=== PATIENT | male | born 1930 | race Caucasian/White ===

== ENCOUNTER 2016-09-04 18:01 | Inpatient (IN) | payer OTHER ==
[~2016-09-04] VITALS: Ht 185.4 cm; Wt 129.2 kg
[2016-09-04 19:17] LABS: EOSINOPHIL (%) 0 % (0-5); HEMATOCRIT 40.7 % (38.0-50.0); IMMATURE GRANULOCYTE (%) 0.2 % (0.0-0.7); INSTRUMENT ABS NEUTROPHIL CT 2.9 K/uL; LYMPHOCYTE COUNT 0.3 K/uL (1.0-2.8); MCH 30.7 PG (29.0-34.0); MCHC 31.9 G/DL (30.0-36.0); MEAN PLAT.VOLUME 11.6 uM^3 (9.0-12.4); MONOCYTE COUNT 0.9 K/uL (0-0.8); NEUTROPHIL (%) 70.5 % (45-76); NEUTROPHIL COUNT 2.9 K/uL (1.8-6.4); PLATELET COUNT 99 K/uL (156-360); RBC DIS.WIDTH-CV 15.9 % (11.8-14.6); RBC DIS.WIDTH-SD 55.9 % (39-53); RED BLOOD COUNT 4.24 M/uL (4.00-5.50); WHITE BLOOD COUNT 4.1 K/uL (4.1-10.2)
[2016-09-04 19:27] LABS: CHLORIDE 104 mEq/L (99-109); POTASSIUM 4.3 mEq/L (3.7-5.4); SODIUM 141 mEq/L (136-147)
[2016-09-04 19:29] LABS: GLUCOSE 121 mg/dL (70-99)
[2016-09-04 19:30] LABS: ANION GAP 10 MEQ/L (2-14)
[2016-09-04 19:31] LABS: TOTAL BILIRUBIN 0.9 mg/dL (0.0-1.0)
[2016-09-04 19:33] LABS: ALKALINE PHOSPHATASE 62 IU/L (3-129); GFR ESTIMATE (CALCULATED) > 59 mL/min/
[2016-09-04 19:34] LABS: UREA NITROGEN (BUN) 22 mg/dL (9-23)
[2016-09-04 19:34] LABS: POINT-OF-CARE METER ID UU13113702
[2016-09-04 19:42] LABS: TROP-I INTERPRETATION NEGATIVE; TROPONIN-I 0.05 ng/mL (0.0-0.30)
[2016-09-04 19:49] LABS: ADD MIUA? YES; BILIRUBIN NEGATIVE; BLOOD NEGATIVE; COLOR AMBER ((YELLOW)); GLUCOSE (STRIP) NEGATIVE; KETONES 20; LEUKOCYTES NEGATIVE; NITRITE NEGATIVE; PROTEIN (STRIP) 100; SPECIFIC GRAVITY 1.024 (1.000-1.030)
[2016-09-04 20:06] LABS: BACTERIA RARE /HPF; EPITHELIAL CELLS NONE SEEN /HPF; MUCUS TRACE /LPF; RED BLOOD CELLS 0-5 /HPF (0-5); WHITE BLOOD CELLS 0-5 /HPF (0-5)
[2016-09-04] MEDS ORDERED: GLUCOPHAGE1000 MG PO (21:08)
[2016-09-04] MEDS ORDERED: LASIX40 MG PO (21:08)
[2016-09-04] MEDS ORDERED: K-DUR20 MEQ PO (21:08)
[2016-09-04] MEDS ORDERED: LIPITOR40 MG PO (21:08)
[2016-09-04] MEDS ORDERED: TENORMIN100 MG PO (21:08)
[2016-09-04] MEDS ORDERED: COZAAR100 MG PO (21:10)
[2016-09-04] MEDS ORDERED: RISPERDAL0.25 MG PO (21:10)
[2016-09-04] MEDS ORDERED: NORVASC5 MG PO (21:10)
[2016-09-04] MEDS ORDERED: TRAZODONE HCL50 MG PO (21:10)
[2016-09-04] MEDS ORDERED: VENLAFAXINE HCL75 M3 PO (21:11)
[2016-09-04] MEDS ORDERED: FISH OIL 1,001000 M1 PO (21:11)
[2016-09-04] MEDS ORDERED: GLUCOSAMINE 1,1 EAC1 PO (21:11)
[2016-09-04] MEDS ORDERED: LITE COAT ASPI325 M1 PO (21:11)
[2016-09-04] MEDS ORDERED: COUMADIN5 MG PO ×2 (21:12→21:13)
[2016-09-04] MEDS ORDERED: CENTRUM SILVER1 EAC3 PO (21:12)
[2016-09-04] MEDS ORDERED: VITAMIN D31000 UNIT PO (21:12)
[2016-09-05 02:00] VITALS: BP 140/71
[2016-09-05 02:16] LABS: INTER. NORMALIZED RATIO 1.4; PROTHROMBIN TIME 14.2 (9.2-11.2)
[2016-09-05 06:28] LABS: HDL CHOLESTEROL 28 MG/DL (Desirable>=40); LDL CHOLESTEROL 62 mg/dL (Desirable<100); NON-HDL CHOLESTEROL 88 mg/dL (Desirable<160); TOTAL CHOLESTEROL 116 mg/dL (Desirable<200); TRIGLYCERIDES 130 MG/DL (Normal: <150)
[2016-09-05 06:53] LABS: Estimated Average Glucose 148 mg/dL (70-123); HEMOGLOBIN A1c (GLYCOHEMOGLOB) 6.8 % HGB (Below 5.7)
[2016-09-05 07:30] VITALS: BP 115/65
[2016-09-05 08:37] LABS: ALKALINE PHOSPHATASE 53 IU/L (3-129); ANION GAP 11 MEQ/L (2-14); CHLORIDE 104 MEQ/L (99-109); GFR ESTIMATE (CALCULATED) > 59 mL/min/; POTASSIUM 4.1 MEQ/L (3.7-5.4); SODIUM 144 MEQ/L (136-147); TOTAL BILIRUBIN 0.7 MG/DL (0.0-1.0); UREA NITROGEN (BUN) 19 mg/dL (9-23)
[2016-09-05 08:38] LABS: GLUCOSE 87 mg/dL (70-99)
[2016-09-05 10:08] LABS: INTER. NORMALIZED RATIO 1.4; PROTHROMBIN TIME 14.6 (9.2-11.2)
[2016-09-05 11:00] VITALS: BP 132/75
[2016-09-05 11:50] LABS: POINT-OF-CARE METER ID UU14174216; POINT-OF-CARE USER ID ENVKC36
[2016-09-05 12:59] LABS: AMPHETAMINES QUANT VALUE 0 NG/ML; BARBITUATES QUANT VALUE 0 NG/ML; BENZODIAZEPINES QUANT VALUE 0 NG/ML; BENZODIAZEPINES, URINE SCREEN Negative (200 ng/mL); MARIJUANA QUANT VALUE 0 NG/ML; OPIATES QUANTITATIVE VALUE 0 NG/ML; PHENCYCLIDINE QUANT VALUE 0 NG/ML
[2016-09-05 17:31] LABS: POINT-OF-CARE METER ID UU14174216; POINT-OF-CARE USER ID ENVKC36
[2016-09-05 19:23] LABS: INFLUENZA A VIRAL ANTIGEN POSITIVE; INFLUENZA B VIRAL ANTIGEN NEGATIVE
[2016-09-05 19:52] VITALS: BP 142/62
[2016-09-05 21:14] LABS: POINT-OF-CARE METER ID UU14188625
[2016-09-06] VITALS (7 sets, daily range): BP systolic 112–175; BP diastolic 54–97
[2016-09-06 06:59] LABS: EOSINOPHIL (%) 0 % (0-5); HEMATOCRIT 36.6 % (38.0-50.0); IMMATURE GRANULOCYTE (%) 0.3 % (0.0-0.7); INSTRUMENT ABS NEUTROPHIL CT 2.5 K/uL; LYMPHOCYTE COUNT 0.4 K/uL (1.0-2.8); MCH 30.8 PG (29.0-34.0); MCHC 31.7 G/DL (30.0-36.0); MCV 97.1 FL (86-99); MEAN PLAT.VOLUME 11.5 uM^3 (9.0-12.4); MONOCYTE (%) 14.5 % (3-12); MONOCYTE COUNT 0.5 K/uL (0-0.8); NEUTROPHIL COUNT 2.5 K/uL (1.8-6.4); PLATELET COUNT 83 K/uL (156-360); RBC DIS.WIDTH-CV 15.6 % (11.8-14.6); RBC DIS.WIDTH-SD 55.8 % (39-53); RED BLOOD COUNT 3.77 M/uL (4.00-5.50); WHITE BLOOD COUNT 3.4 K/uL (4.1-10.2)
[2016-09-06 07:16] LABS: ANION GAP 6 MEQ/L (2-14); CHLORIDE 106 MEQ/L (99-109); GFR ESTIMATE (CALCULATED) > 59 mL/min/; SAMPLE HEMOLYSIS CHECK 0; SAMPLE ICTERIC CHECK 0; SAMPLE LIPEMIA CHECK 0; SODIUM 141 MEQ/L (136-147); UREA NITROGEN (BUN) 21 mg/dL (9-23)
[2016-09-06 07:17] LABS: GLUCOSE 165 mg/dL (70-99)
[2016-09-06 07:19] LABS: INTER. NORMALIZED RATIO 1.7; PROTHROMBIN TIME 17.1 (9.2-11.2)
[2016-09-07 04:12] VITALS: BP 154/76
[2016-09-07 07:49] VITALS: BP 140/78
[2016-09-07 07:55] LABS: INTER. NORMALIZED RATIO 1.9; PROTHROMBIN TIME 19.8 (9.2-11.2)
[2016-09-07 11:29] VITALS: BP 142/82
[2016-09-07 16:02] VITALS: BP 124/86
[2016-09-07 19:37] VITALS: BP 153/71
[2016-09-07 21:39] LABS: POINT-OF-CARE METER ID UU14174225
[2016-09-08 00:26] VITALS: BP 158/89
[2016-09-08 04:17] VITALS: BP 155/80
[2016-09-08 07:05] LABS: ANION GAP 6 MEQ/L (2-14); CHLORIDE 102 MEQ/L (99-109); GFR ESTIMATE (CALCULATED) > 59 mL/min/; GLUCOSE 179 mg/dL (70-99); POTASSIUM 4.3 MEQ/L (3.7-5.4); SAMPLE HEMOLYSIS CHECK 0; SAMPLE ICTERIC CHECK 0; SAMPLE LIPEMIA CHECK 0; SODIUM 139 MEQ/L (136-147); UREA NITROGEN (BUN) 21 mg/dL (9-23)
[2016-09-08 07:09] LABS: HEMATOCRIT 38.6 % (38.0-50.0); MCHC 32.6 G/DL (30.0-36.0); MCV 94.8 FL (86-99); MEAN PLAT.VOLUME 11.6 uM^3 (9.0-12.4); PLATELET COUNT 86 K/uL (156-360); RBC DIS.WIDTH-CV 14.9 % (11.8-14.6); RBC DIS.WIDTH-SD 52.4 % (39-53); RED BLOOD COUNT 4.07 M/uL (4.00-5.50)
[2016-09-08 07:21] VITALS: BP 162/88
[2016-09-08 07:24] LABS: INTER. NORMALIZED RATIO 2.4; PROTHROMBIN TIME 25.4 (9.2-11.2)
[2016-09-08 11:20] VITALS: BP 130/72
[2016-09-08 11:49] LABS: POINT-OF-CARE METER ID UU14188625
[2016-09-08 14:48] VITALS: BP 134/74
[2016-09-08 16:07] LABS: POINT-OF-CARE METER ID UU14174225
[2016-09-08 20:00] VITALS: BP 149/95
[2016-09-08 21:46] LABS: POINT-OF-CARE METER ID UU14188625
[2016-09-09] VITALS: BP 174/84
[2016-09-09 03:42] VITALS: BP 165/84
[2016-09-09 07:16] LABS: MCH 30.6 PG (29.0-34.0); MCHC 32.3 G/DL (30.0-36.0); MCV 94.8 FL (86-99); MEAN PLAT.VOLUME 11.9 uM^3 (9.0-12.4); PLATELET COUNT 83 K/uL (156-360); RBC DIS.WIDTH-CV 14.8 % (11.8-14.6); RBC DIS.WIDTH-SD 51.6 % (39-53); RED BLOOD COUNT 4.22 M/uL (4.00-5.50); WHITE BLOOD COUNT 5.3 K/uL (4.1-10.2)
[2016-09-09 07:41] LABS: INTER. NORMALIZED RATIO 2.9; PROTHROMBIN TIME 30.4 (9.2-11.2)
[2016-09-09 07:44] LABS: POINT-OF-CARE METER ID UU14174225
[2016-09-09 08:00] VITALS: BP 137/91
[2016-09-09 11:14] LABS: POINT-OF-CARE METER ID UU14174225
[2016-09-09 11:50] VITALS: BP 148/73
[2016-09-09 16:26] VITALS: BP 158/82
[2016-09-09 16:48] LABS: POINT-OF-CARE METER ID UU14174225
[2016-09-09 20:00] VITALS: BP 168/77
[2016-09-09 22:30] LABS: POINT-OF-CARE USER ID BHSKTD
[2016-09-10] VITALS: BP 150/75
[2016-09-10 04:00] VITALS: BP 141/70
[2016-09-10 06:46] LABS: INTER. NORMALIZED RATIO 2.4; PROTHROMBIN TIME 25.4 (9.2-11.2)
[2016-09-10 08:40] LABS: POINT-OF-CARE METER ID UU14188625
[2016-09-10 09:12] VITALS: BP 154/90
[2016-09-10 11:47] LABS: POINT-OF-CARE METER ID UU14174225
[2016-09-10] MEDS ORDERED: DUONEB 2.5-0.5 M3 ML AEROSOL (12:30)
[2016-09-10] MEDS ORDERED: OSELTAMIVIR PHO75 MG PO (12:30)
[2016-09-10] MEDS ORDERED: COUMADIN2.5 MG PO (12:30)
[2016-09-10] MEDS ORDERED: PREDNISONE10 MG PO (12:30)
[2016-09-10] MEDS ORDERED: CEFTIN500 MG PO (13:01)
== END 2016-09-10 15:27 | DRG 190 ==
LOC: EME → EDBD 18:01 → EME 18:01 → 4EAST 23:52 → 5SOUTH 23:52 → EDOF 23:52 → 4EAST 09-05 01:42 → 5SOUTH 09-05 19:52
PROVIDERS: Emergency Medicine; Hospitalist; Internal Medicine; Physician Assistant Medical; Student in an Organized Health Care Education/Training Program
DX: J44.1 Chronic obstructive pulmonary disease with (acute) exacerbation (principal); J96.01 Acute respiratory failure with hypoxia; J44.0 Chronic obstructive pulmonary disease with (acute) lower respiratory infection; J11.00 Influenza due to unidentified influenza virus with unspecified type of pneumonia; J69.0 Pneumonitis due to inhalation of food and vomit; G30.9 Alzheimer's disease, unspecified; F02.81 Dementia in other diseases classified elsewhere, unspecified severity, with behavioral disturbance; D61.818 Other pancytopenia; G93.1 Anoxic brain damage, not elsewhere classified; I25.10 Atherosclerotic heart disease of native coronary artery without angina pectoris; I48.91 Unspecified atrial fibrillation; I11.0 Hypertensive heart disease with heart failure; I50.9 Heart failure, unspecified; E11.9 Type 2 diabetes mellitus without complications; E78.5 Hyperlipidemia, unspecified; R60.0 Localized edema; F32.9 Major depressive disorder, single episode, unspecified; R26.2 Difficulty in walking, not elsewhere classified; E66.3 Overweight; Z68.34 Body mass index [BMI] 34.0-34.9, adult; Z87.891 Personal history of nicotine dependence; Z91.81 History of falling
CPT/HCPCS: 70450; 70551; 71010; 71250; 72125; 74230; 80048; 80053; 80061; 80306 90; 81003; 82140; 82948; 83036; 83605; 83880; 84484; 85025; 85027; 85610; 87040; 87502; 92610 GN; 92611 GN; 93005; 93880; 94640; 94640 76; 94799; 97530 GO; 97530 GP; 99202; 99281; 99285; J0456; J0696; J1644; J1815; J2543; J2920; J2930; J7030; J7050

== ENCOUNTER 2017-05-10 06:55 | Inpatient (IN) | payer OTHER ==
[~2017-05-10] VITALS: Ht 177.8 cm; Wt 109.5 kg
[~2017-05-10 06:55] MED LIST: CEFTIN500 MG PO; CENTRUM SILVER1 EAC3 PO; COUMADIN2.5 MG PO; COUMADIN5 MG PO; COZAAR100 MG PO; DUONEB 2.5-0.5 M3 ML AEROSOL; FISH OIL 1,001000 M1 PO; GLUCOPHAGE1000 MG PO; GLUCOSAMINE 1,1 EAC1 PO; K-DUR20 MEQ PO; LASIX40 MG PO; LIPITOR40 MG PO; LITE COAT ASPI325 M1 PO; NORVASC5 MG PO; OSELTAMIVIR PHO75 MG PO; PREDNISONE10 MG PO; RISPERDAL0.25 MG PO; TENORMIN100 MG PO; TRAZODONE HCL50 MG PO; VENLAFAXINE HCL75 M3 PO; VITAMIN D31000 UNIT PO
[2017-05-10 07:33] LABS: EOSINOPHIL COUNT 0.1 K/uL (0-0.3); HEMATOCRIT 42.2 % (38.0-50.0); IMMATURE GRANULOCYTE (%) 0.3 % (0.0-0.7); INSTRUMENT ABS NEUTROPHIL CT 5.4 K/uL; LYMPHOCYTE COUNT 0.7 K/uL (1.0-2.8); MCH 29.4 PG (29.0-34.0); MCHC 32.2 G/DL (30.0-36.0); MCV 91.3 FL (86-99); MEAN PLAT.VOLUME 12.3 uM^3 (9.0-12.4); MONOCYTE (%) 9.2 % (3-12); MONOCYTE COUNT 0.6 K/uL (0-0.8); NEUTROPHIL (%) 79.2 % (45-76); NEUTROPHIL COUNT 5.4 K/uL (1.8-6.4); PLATELET COUNT 99 K/uL (156-360); RBC DIS.WIDTH-CV 16.1 % (11.8-14.6); RBC DIS.WIDTH-SD 54.4 % (39-53); RED BLOOD COUNT 4.62 M/uL (4.00-5.50); WHITE BLOOD COUNT 6.8 K/uL (4.1-10.2)
[2017-05-10 07:51] LABS: CHLORIDE 103 mEq/L (99-109); POTASSIUM 3.8 mEq/L (3.7-5.4); SODIUM 142 mEq/L (136-147)
[2017-05-10 07:53] LABS: GLUCOSE 136 mg/dL (70-99)
[2017-05-10 07:54] LABS: ANION GAP 10 MEQ/L (2-14)
[2017-05-10 07:57] LABS: GFR ESTIMATE (CALCULATED) > 59 mL/min/ (58.99-99999); UREA NITROGEN (BUN) 19 mg/dL (9-23)
[2017-05-10 08:04] LABS: TROP-I INTERPRETATION NEGATIVE; TROPONIN-I < 0.01 ng/mL (0.0-0.30)
[2017-05-10 08:36] LABS: ADD MIUA? YES; BILIRUBIN NEGATIVE; BLOOD LARGE; COLOR YELLOW ((YELLOW)); GLUCOSE (STRIP) NEGATIVE; KETONES NEGATIVE; LEUKOCYTES NEGATIVE; NITRITE NEGATIVE; PROTEIN (STRIP) 30; SPECIFIC GRAVITY 1.012 (1.000-1.030); UROBILINOGEN 0.2 MG/DL (0.2-1.0)
[2017-05-10 08:43] LABS: BACTERIA RARE /HPF; EPITHELIAL CELLS RARE /HPF; HYALINE CASTS 0-5 /LPF; MUCUS TRACE /LPF; RED BLOOD CELLS TNTC /HPF (0-5); WHITE BLOOD CELLS 0-5 /HPF (0-5)
[2017-05-10 09:04] LABS: INTER. NORMALIZED RATIO 3.2; PROTHROMBIN TIME 36.5 SEC (10.2-12.9)
[2017-05-10 09:44] LABS: CREATINE KINASE 112 IU/L (1-294)
[2017-05-10 10:07] LABS: HDL CHOLESTEROL 33 MG/DL (Desirable>=40); LDL CHOLESTEROL 87 mg/dL (Desirable<100); NON-HDL CHOLESTEROL 119 mg/dL (Desirable<160); TOTAL CHOLESTEROL 152 mg/dL (Desirable<200); TRIGLYCERIDES 161 MG/DL (Normal: <150)
[2017-05-10 10:39] LABS: Estimated Average Glucose 151 mg/dL (70-123); HEMOGLOBIN A1c (GLYCOHEMOGLOB) 6.9 % HGB (Below 5.7)
[2017-05-10] MEDS ORDERED: TOPROL XL100 MG PO (10:59)
[2017-05-10] MEDS ORDERED: TYLENOL PM EX-1 EACH PO (11:01)
[2017-05-10] MEDS ORDERED: TYLENOL ARTHRI650 MG PO (11:01)
[2017-05-10] MEDS ORDERED: COUMADIN2.5 MG PO ×2 (11:04)
[2017-05-10] MEDS ORDERED: ALEVE220 M2 PO (11:04)
[2017-05-10] MEDS ORDERED: RISPERDAL0.25 MG PO (11:05)
[2017-05-10] MEDS ORDERED: PROSTATE HEALT1 EAC1 PO (11:05)
[2017-05-10 14:13] VITALS: BP 179/82
[2017-05-10 15:30] LABS: TROP-I INTERPRETATION NEGATIVE; TROPONIN-I < 0.01 ng/mL (0.0-0.30)
[2017-05-10 18:05] LABS: POINT-OF-CARE METER ID UU13113717
[2017-05-10 19:21] VITALS: BP 133/71
[2017-05-10 20:30] LABS: TROP-I INTERPRETATION NEGATIVE; TROPONIN-I 0.02 ng/mL (0.0-0.30)
[2017-05-10 20:50] LABS: POINT-OF-CARE METER ID UU13113717
[2017-05-11 00:26] VITALS: BP 118/74
[2017-05-11 04:30] VITALS: BP 208/112
[2017-05-11 05:09] LABS: POINT-OF-CARE METER ID UU14174225
[2017-05-11 06:29] LABS: INTER. NORMALIZED RATIO 3.1; PROTHROMBIN TIME 35.8 SEC (10.2-12.9)
[2017-05-11 07:03] VITALS: BP 165/84
[2017-05-11 07:24] LABS: POINT-OF-CARE METER ID UU13113717
[2017-05-11 10:52] LABS: ALKALINE PHOSPHATASE 67 IU/L (3-129); GFR ESTIMATE (CALCULATED) > 59 mL/min/ (58.99-99999); GLUCOSE 166 mg/dL (70-99); SAMPLE HEMOLYSIS CHECK 0; SAMPLE ICTERIC CHECK 0; SAMPLE LIPEMIA CHECK 0; TOTAL BILIRUBIN 1.1 MG/DL (0.0-1.0); UREA NITROGEN (BUN) 14 mg/dL (9-23)
[2017-05-11 11:09] VITALS: BP 173/81
[2017-05-11 11:10] LABS: POINT-OF-CARE METER ID UU13113717
[2017-05-11 11:13] LABS: ANION GAP 14 MEQ/L (2-14); CHLORIDE 100 MEQ/L (99-109); POTASSIUM 3.6 MEQ/L (3.7-5.4); SODIUM 136 MEQ/L (136-147)
[2017-05-11 15:07] VITALS: BP 168/79
[2017-05-11 16:28] LABS: POINT-OF-CARE METER ID UU13113717
[2017-05-11 19:48] VITALS: BP 140/65
[2017-05-11 20:43] LABS: POINT-OF-CARE METER ID UU13113717
[2017-05-12 00:23] VITALS: BP 144/83
[2017-05-12 03:45] VITALS: BP 128/68
[2017-05-12 07:00] LABS: EOSINOPHIL (%) 0.7 % (0-5); HEMATOCRIT 36.9 % (38.0-50.0); IMMATURE GRANULOCYTE (%) 0.2 % (0.0-0.7); INSTRUMENT ABS NEUTROPHIL CT 4.3 K/uL; LYMPHOCYTE COUNT 0.6 K/uL (1.0-2.8); MCHC 32.2 G/DL (30.0-36.0); MEAN PLAT.VOLUME 11.5 uM^3 (9.0-12.4); MONOCYTE (%) 12.8 % (3-12); MONOCYTE COUNT 0.7 K/uL (0-0.8); NEUTROPHIL (%) 75.9 % (45-76); NEUTROPHIL COUNT 4.3 K/uL (1.8-6.4); PLATELET COUNT 97 K/uL (156-360); RBC DIS.WIDTH-CV 15.9 % (11.8-14.6); RBC DIS.WIDTH-SD 52.3 % (39-53); WHITE BLOOD COUNT 5.7 K/uL (4.1-10.2)
[2017-05-12 07:45] VITALS: BP 163/81
[2017-05-12 07:49] LABS: INTER. NORMALIZED RATIO 4.5; PROTHROMBIN TIME 51.8 SEC (10.2-12.9)
[2017-05-12 08:38] LABS: ANION GAP 8 MEQ/L (2-14); CHLORIDE 106 MEQ/L (99-109); POTASSIUM 3.5 MEQ/L (3.7-5.4); SAMPLE HEMOLYSIS CHECK 0; SAMPLE ICTERIC CHECK 0; SAMPLE LIPEMIA CHECK 0; SODIUM 141 MEQ/L (136-147)
[2017-05-12 08:43] LABS: GFR ESTIMATE (CALCULATED) > 59 mL/min/ (58.99-99999); GLUCOSE 129 mg/dL (70-99); UREA NITROGEN (BUN) 16 mg/dL (9-23)
[2017-05-12 12:21] LABS: POINT-OF-CARE METER ID UU14174225
[2017-05-12 16:51] VITALS: BP 133/64
[2017-05-12 17:26] LABS: POINT-OF-CARE METER ID UU14174225
[2017-05-12 19:27] VITALS: BP 131/84
[2017-05-12 19:59] LABS: CHLORIDE 103 MEQ/L (99-109); POTASSIUM 3.5 MEQ/L (3.7-5.4); SODIUM 139 MEQ/L (136-147)
[2017-05-12 20:09] LABS: TROP-I INTERPRETATION NEGATIVE; TROPONIN-I 0.02 ng/mL (0.0-0.30)
[2017-05-12 20:23] LABS: ALKALINE PHOSPHATASE 60 IU/L (3-129); ANION GAP 11 MEQ/L (2-14); GFR ESTIMATE (CALCULATED) > 59 mL/min/ (58.99-99999); GLUCOSE 140 mg/dL (70-99); MAGNESIUM 1.8 mg/dl (1.3-2.7); SAMPLE HEMOLYSIS CHECK 0; SAMPLE ICTERIC CHECK 0; SAMPLE LIPEMIA CHECK 0; UREA NITROGEN (BUN) 18 mg/dL (9-23)
[2017-05-12 20:24] LABS: TOTAL BILIRUBIN 0.8 MG/DL (0.0-1.0)
[2017-05-13 00:36] VITALS: BP 165/78
[2017-05-13 03:15] VITALS: BP 155/70
[2017-05-13 03:26] VITALS: BP 157/96
[2017-05-13 06:35] LABS: EOSINOPHIL COUNT 0.1 K/uL (0-0.3); HEMATOCRIT 42.1 % (38.0-50.0); IMMATURE GRANULOCYTE (%) 0.3 % (0.0-0.7); INSTRUMENT ABS NEUTROPHIL CT 5.5 K/uL; LYMPHOCYTE COUNT 0.8 K/uL (1.0-2.8); MCH 29.5 PG (29.0-34.0); MCHC 32.5 G/DL (30.0-36.0); MCV 90.5 FL (86-99); MEAN PLAT.VOLUME 12.2 uM^3 (9.0-12.4); MONOCYTE (%) 12.5 % (3-12); MONOCYTE COUNT 0.9 K/uL (0-0.8); NEUTROPHIL (%) 75.3 % (45-76); NEUTROPHIL COUNT 5.5 K/uL (1.8-6.4); PLATELET COUNT 109 K/uL (156-360); RBC DIS.WIDTH-SD 53.1 % (39-53); RED BLOOD COUNT 4.65 M/uL (4.00-5.50); WHITE BLOOD COUNT 7.3 K/uL (4.1-10.2)
[2017-05-13 07:01] LABS: ANION GAP 10 MEQ/L (2-14); CHLORIDE 102 MEQ/L (99-109); GFR ESTIMATE (CALCULATED) > 59 mL/min/ (58.99-99999); GLUCOSE 130 mg/dL (70-99); POTASSIUM 3.1 MEQ/L (3.7-5.4); SAMPLE HEMOLYSIS CHECK 0; SAMPLE ICTERIC CHECK 0; SAMPLE LIPEMIA CHECK 0; SODIUM 141 MEQ/L (136-147); UREA NITROGEN (BUN) 15 mg/dL (9-23)
[2017-05-13 12:29] LABS: POINT-OF-CARE METER ID UU14174225
[2017-05-13 16:00] VITALS: BP 144/80
[2017-05-13 17:36] LABS: POINT-OF-CARE METER ID UU13113717
[2017-05-13 19:06] VITALS: BP 143/83
[2017-05-13 23:35] VITALS: BP 140/84
[2017-05-14 01:06] LABS: MAGNESIUM 1.6 mg/dL (1.3-2.7); POTASSIUM 3.6 mEq/L (3.7-5.4)
[2017-05-14 04:00] VITALS: BP 119/79
[2017-05-14 06:31] LABS: INTER. NORMALIZED RATIO 2.4; PROTHROMBIN TIME 27.1 SEC (10.2-12.9)
[2017-05-14 06:56] LABS: ANION GAP 6 MEQ/L (2-14); CHLORIDE 104 MEQ/L (99-109); GFR ESTIMATE (CALCULATED) > 59 mL/min/ (58.99-99999); GLUCOSE 127 mg/dL (70-99); POTASSIUM 3.9 MEQ/L (3.7-5.4); SAMPLE HEMOLYSIS CHECK 0; SAMPLE ICTERIC CHECK 0; SAMPLE LIPEMIA CHECK 0; SODIUM 142 MEQ/L (136-147); UREA NITROGEN (BUN) 15 mg/dL (9-23)
[2017-05-14 07:41] LABS: POINT-OF-CARE METER ID UU14174225
[2017-05-14 08:04] VITALS: BP 128/86
[2017-05-14] MEDS ORDERED: NIFEDIPINE10 MG PO (09:47)
[2017-05-14] MEDS ORDERED: DONEPEZIL HCL5 MG PO (09:47)
[2017-05-14 11:16] VITALS: BP 130/80
[2017-05-14] MEDS ORDERED: ASPIR-LOW81 MG PO (13:03)
[2017-05-14 13:23] LABS: POINT-OF-CARE METER ID UU14174225
== END 2017-05-14 15:40 | DRG 69 ==
LOC: EME → EDBD 06:59 → 5SOUTH 08:46 → EDOF 08:46 → ENRESERV 08:48 → 5SOUTH 13:45 → ENPENDDIS 05-14 → 5SOUTH 05-14 15:40
PROVIDERS: Emergency Medicine; Family Medicine; Hospitalist; Internal Medicine
DX: G45.9 Transient cerebral ischemic attack, unspecified (principal); G93.40 Encephalopathy, unspecified; I48.2 Chronic atrial fibrillation; L89.613 Pressure ulcer of right heel, stage 3; R31.29 Other microscopic hematuria; I11.0 Hypertensive heart disease with heart failure; I50.9 Heart failure, unspecified; D69.6 Thrombocytopenia, unspecified; E11.40 Type 2 diabetes mellitus with diabetic neuropathy, unspecified; D68.9 Coagulation defect, unspecified; R47.01 Aphasia; F05 Delirium due to known physiological condition; E87.6 Hypokalemia; F03.90 Unspecified dementia, unspecified severity, without behavioral disturbance, psychotic disturbance, mood disturbance, and anxiety; I89.0 Lymphedema, not elsewhere classified; I87.8 Other specified disorders of veins; I25.10 Atherosclerotic heart disease of native coronary artery without angina pectoris; R26.9 Unspecified abnormalities of gait and mobility; B36.9 Superficial mycosis, unspecified; F32.9 Major depressive disorder, single episode, unspecified; E78.5 Hyperlipidemia, unspecified; E66.9 Obesity, unspecified; Z68.34 Body mass index [BMI] 34.0-34.9, adult; Z87.891 Personal history of nicotine dependence; Z95.5 Presence of coronary angioplasty implant and graft; Z79.82 Long term (current) use of aspirin; Z79.01 Long term (current) use of anticoagulants; Z79.84 Long term (current) use of oral hypoglycemic drugs
CPT/HCPCS: 70450; 70551; 71010; 80048; 80053; 80061; 81003; 82140; 82550 91; 82948; 83036; 83605; 83735; 83880; 84100; 84132 91; 84484; 85025; 85610; 92523 GN; 92610 GN; 93005; 93306; 93880; 94799; 97530 GO; 97530 GP; 97532 GN; 99281; 99285; C1755; J0360; J1815; J2270; J3480; J7030

== ENCOUNTER 2017-11-14 10:43 | Inpatient (IN) | payer OTHER ==
[~2017-11-14] VITALS: Ht 182.9 cm; Wt 130.0 kg
[~2017-11-14 10:43] MED LIST changes: +ALEVE220 M2 PO; +ASPIR-LOW81 MG PO; +DONEPEZIL HCL5 MG PO; +NIFEDIPINE10 MG PO; +PROSTATE HEALT1 EAC1 PO; +TOPROL XL100 MG PO; +TYLENOL ARTHRI650 MG PO; +TYLENOL PM EX-1 EACH PO
[2017-11-14 11:06] LABS: HEMATOCRIT 30.5 % (38.0-50.0); HEMOGLOBIN 9.2 G/DL (12.5-16.6); MCH 27.5 PG (29.0-34.0); MCHC 30.2 G/DL (30.0-36.0); PLATELET COUNT 136 K/uL (156-360); RBC DIS.WIDTH-CV 15.9 % (11.8-14.6); RBC DIS.WIDTH-SD 53.2 % (39-53); RED BLOOD COUNT 3.35 M/uL (4.00-5.50); WHITE BLOOD COUNT 6.3 K/uL (4.1-10.2)
[2017-11-14 11:14] LABS: CHLORIDE 104 mEq/L (99-109); POTASSIUM 4.4 mEq/L (3.7-5.4); SODIUM 143 mEq/L (136-147)
[2017-11-14 11:16] LABS: GLUCOSE 163 mg/dL (70-99)
[2017-11-14 11:20] LABS: CREATININE 1.4 mg/dL (0.6-1.3); GFR ESTIMATE (CALCULATED) 51 mL/min/ (58.99-99999)
[2017-11-14 11:21] LABS: UREA NITROGEN (BUN) 27 mg/dL (9-23)
[2017-11-14 12:41] LABS: ALBUMIN 3.7 g/dL (3.2-4.8)
[2017-11-14 12:41] LABS: INTER. NORMALIZED RATIO 2.9
[2017-11-14 12:43] LABS: PTT 41.3 SEC (25-37)
[2017-11-14 12:44] LABS: TOTAL PROTEIN 6.8 g/dL (6.4-8.3)
[2017-11-14 12:46] LABS: TOTAL BILIRUBIN 0.4 mg/dL (0.0-1.0)
[2017-11-14 12:47] LABS: ALKALINE PHOSPHATASE 80 IU/L (3-129)
[2017-11-14 12:49] LABS: AST (GOT) 16 IU/L (2-34)
[2017-11-14 12:50] LABS: ALT (GPT) 18 IU/L (3-49); DIRECT BILIRUBIN 0.2 mg/dL (0.0-0.3)
[2017-11-14 12:54] LABS: TROP-I INTERPRETATION NEGATIVE; TROPONIN-I 0.02 ng/mL (0.0-0.30)
[2017-11-14] MEDS ORDERED: ASPIRIN325 MG PO (14:55)
[2017-11-14] MEDS ORDERED: BAYER ADVANCED500 MG PO (14:56)
[2017-11-14 16:03] LABS: APPEARANCE CLEAR ((CLEAR)); BILIRUBIN NEGATIVE; BLOOD SMALL; COLOR COLORLESS ((YELLOW)); GLUCOSE (STRIP) NEGATIVE; KETONES NEGATIVE; LEUKOCYTES NEGATIVE; NITRITE NEGATIVE; PROTEIN (STRIP) NEGATIVE; SPECIFIC GRAVITY 1.008 (1.000-1.030); UROBILINOGEN 0.2 MG/DL (0.2-1.0)
[2017-11-14 16:07] LABS: BACTERIA RARE /HPF; EPITHELIAL CELLS NONE SEEN /HPF; MUCUS NONE SEEN /LPF; RED BLOOD CELLS 0-5 /HPF (0-5); UCUL ADDED? NO; WHITE BLOOD CELLS 0-5 /HPF (0-5)
[2017-11-14 16:29] VITALS: BP 154/96
[2017-11-14 17:55] VITALS: BP 141/65
[2017-11-14 20:15] VITALS: BP 146/71
[2017-11-15 00:10] VITALS: BP 131/73
[2017-11-15 05:05] VITALS: BP 136/74
[2017-11-15 05:58] LABS: HEMATOCRIT 29.9 % (38.0-50.0); HEMOGLOBIN 8.9 G/DL (12.5-16.6); INTER. NORMALIZED RATIO 3.2; MCH 27.2 PG (29.0-34.0); MCHC 29.8 G/DL (30.0-36.0); MCV 91.4 FL (86-99); PLATELET COUNT 135 K/uL (156-360); RBC DIS.WIDTH-SD 53.7 % (39-53); RED BLOOD COUNT 3.27 M/uL (4.00-5.50); WHITE BLOOD COUNT 6.7 K/uL (4.1-10.2)
[2017-11-15 06:19] LABS: CHLORIDE 101 MEQ/L (99-109); CREATININE 1.3 MG/DL (0.6-1.3); GFR ESTIMATE (CALCULATED) 56 mL/min/ (58.99-99999); POTASSIUM 3.7 MEQ/L (3.7-5.4); SODIUM 144 MEQ/L (136-147); UREA NITROGEN (BUN) 26 mg/dL (9-23)
[2017-11-15 06:23] LABS: GLUCOSE 115 mg/dL (70-99)
[2017-11-15 08:00] VITALS: BP 136/71
[2017-11-15 11:55] VITALS: BP 134/75
[2017-11-15 17:42] VITALS: BP 154/87
[2017-11-15 21:05] VITALS: BP 136/64
[2017-11-16 00:05] VITALS: BP 132/72
[2017-11-16 04:30] VITALS: BP 144/68
[2017-11-16 07:35] VITALS: BP 157/79
[2017-11-16 11:21] LABS: BASOPHIL (%) 0.1 % (0-1); EOSINOPHIL (%) 0 % (0-5); HEMATOCRIT 30.5 % (38.0-50.0); HEMOGLOBIN 9.2 G/DL (12.5-16.6); IMMATURE GRANULOCYTE (%) 0.3 % (0.0-0.7); LYMPHOCYTE (%) 3.1 % (15-42); LYMPHOCYTE COUNT 0.2 K/uL (1.0-2.8); MCH 27.3 PG (29.0-34.0); MCHC 30.2 G/DL (30.0-36.0); MCV 90.5 FL (86-99); MONOCYTE (%) 4.1 % (3-12); MONOCYTE COUNT 0.3 K/uL (0-0.8); NEUTROPHIL (%) 92.4 % (45-76); NEUTROPHIL COUNT 7.2 K/uL (1.8-6.4); PLATELET COUNT 145 K/uL (156-360); RBC DIS.WIDTH-CV 15.8 % (11.8-14.6); RBC DIS.WIDTH-SD 51.8 % (39-53); RED BLOOD COUNT 3.37 M/uL (4.00-5.50); WHITE BLOOD COUNT 7.7 K/uL (4.1-10.2)
[2017-11-16 11:36] LABS: INTER. NORMALIZED RATIO 2.3
[2017-11-16 11:49] LABS: CHLORIDE 97 MEQ/L (99-109); CREATININE 1.4 MG/DL (0.6-1.3); GFR ESTIMATE (CALCULATED) 51 mL/min/ (58.99-99999); GLUCOSE 281 mg/dL (70-99); POTASSIUM 4.1 MEQ/L (3.7-5.4); SODIUM 141 MEQ/L (136-147); UREA NITROGEN (BUN) 34 mg/dL (9-23)
[2017-11-16 12:45] VITALS: BP 134/67
[2017-11-16 16:19] VITALS: BP 131/65
[2017-11-16 19:37] VITALS: BP 163/85
[2017-11-17 00:06] VITALS: BP 143/77
[2017-11-17 04:15] VITALS: BP 151/66
[2017-11-17 08:22] VITALS: BP 158/79
[2017-11-17 19:00] VITALS: BP 145/78
[2017-11-17 23:49] VITALS: BP 135/83
[2017-11-18 03:34] VITALS: BP 136/70
[2017-11-18 06:01] LABS: INTER. NORMALIZED RATIO 1.8
[2017-11-18 07:06] VITALS: BP 147/91
[2017-11-18 10:57] VITALS: BP 126/71
[2017-11-18 15:18] VITALS: BP 128/92
[2017-11-18 19:47] VITALS: BP 140/68
[2017-11-18 23:55] VITALS: BP 138/79
[2017-11-19 04:31] VITALS: BP 133/64
[2017-11-19 04:48] LABS: INTER. NORMALIZED RATIO 1.5
[2017-11-19 08:11] VITALS: BP 155/87
[2017-11-19 08:29] LABS: CHLORIDE 97 MEQ/L (99-109); CREATININE 1.3 MG/DL (0.6-1.3); GFR ESTIMATE (CALCULATED) 56 mL/min/ (58.99-99999); GLUCOSE 216 mg/dL (70-99); POTASSIUM 4.3 MEQ/L (3.7-5.4); SODIUM 139 MEQ/L (136-147); UREA NITROGEN (BUN) 47 mg/dL (9-23)
[2017-11-19 09:02] LABS: BASOPHIL (%) 0.1 % (0-1); EOSINOPHIL (%) 0 % (0-5); HEMATOCRIT 35.1 % (38.0-50.0); HEMOGLOBIN 10.7 G/DL (12.5-16.6); IMMATURE GRANULOCYTE (%) 0.6 % (0.0-0.7); LYMPHOCYTE (%) 3.2 % (15-42); LYMPHOCYTE COUNT 0.4 K/uL (1.0-2.8); MCH 26.9 PG (29.0-34.0); MCHC 30.5 G/DL (30.0-36.0); MCV 88.2 FL (86-99); MONOCYTE (%) 7.4 % (3-12); MONOCYTE COUNT 0.9 K/uL (0-0.8); NEUTROPHIL (%) 88.7 % (45-76); NEUTROPHIL COUNT 11.2 K/uL (1.8-6.4); PLATELET COUNT 179 K/uL (156-360); RBC DIS.WIDTH-CV 15.7 % (11.8-14.6); RBC DIS.WIDTH-SD 50.4 % (39-53); RED BLOOD COUNT 3.98 M/uL (4.00-5.50); WHITE BLOOD COUNT 12.6 K/uL (4.1-10.2)
[2017-11-19 11:28] VITALS: BP 116/70
[2017-11-19 16:35] VITALS: BP 139/71
[2017-11-19 19:32] VITALS: BP 140/71
[2017-11-19 23:07] VITALS: BP 117/64
[2017-11-20 03:04] VITALS: BP 138/65
[2017-11-20 05:35] LABS: INTER. NORMALIZED RATIO 1.3
[2017-11-20 08:07] VITALS: BP 143/70
[2017-11-20 11:57] VITALS: BP 148/71
[2017-11-20 12:30] LABS: C-REACTIVE PROTEIN 12.5 MG/L (0-10); PREALBUMIN 26.6 mg/dL (10-40)
[2017-11-20 16:52] LABS: TYPE OF FLUID PERICARDIAL
[2017-11-20 17:13] LABS: APPEARANCE HAZY-YELLOW; BODY FLUID RBC'S 1000 /MM^3 (0-100); BODY FLUID WBC'S 1277 /MM^3 (0-500)
[2017-11-20 17:31] LABS: BODY FLUID GLUCOSE 168 MG/DL; BODY FLUID LDH 156 IU/L
[2017-11-20 18:06] LABS: BODY FLUID EOSINOPHILS 0 % (0-25); MONONUCLEAR WBC'S 99 %; POLYNUCLEAR WBC'S 1 % (0-25)
[2017-11-21] VITALS (11 sets, daily range): BP systolic 82–126; BP diastolic 46–69
[2017-11-21 05:27] LABS: HEMATOCRIT 32.9 % (38.0-50.0); HEMOGLOBIN 9.7 G/DL (12.5-16.6); MCH 26.7 PG (29.0-34.0); MCHC 29.5 G/DL (30.0-36.0); MCV 90.6 FL (86-99); PLATELET COUNT 141 K/uL (156-360); RBC DIS.WIDTH-CV 15.9 % (11.8-14.6); RBC DIS.WIDTH-SD 52.6 % (39-53); RED BLOOD COUNT 3.63 M/uL (4.00-5.50); WHITE BLOOD COUNT 16.1 K/uL (4.1-10.2)
[2017-11-21 06:05] LABS: CHLORIDE 97 MEQ/L (99-109); GFR ESTIMATE (CALCULATED) 38 mL/min/ (58.99-99999); GLUCOSE 135 mg/dL (70-99); POTASSIUM 4.2 MEQ/L (3.7-5.4); SODIUM 137 MEQ/L (136-147); UREA NITROGEN (BUN) 54 mg/dL (9-23)
[2017-11-21 06:18] LABS: CREATININE 1.8 MG/DL (0.6-1.3)
[2017-11-21 21:38] LABS: APPEARANCE SL.HAZY ((CLEAR)); BILIRUBIN NEGATIVE; BLOOD MODERATE; COLOR YELLOW ((YELLOW)); GLUCOSE (STRIP) NEGATIVE; KETONES NEGATIVE; LEUKOCYTES NEGATIVE; NITRITE NEGATIVE; PROTEIN (STRIP) 30; SPECIFIC GRAVITY 1.018 (1.000-1.030); UROBILINOGEN 0.2 MG/DL (0.2-1.0)
[2017-11-21 21:41] LABS: BACTERIA RARE /HPF; EPITHELIAL CELLS RARE /HPF; MUCUS TRACE /LPF
[2017-11-22] VITALS (12 sets, daily range): BP systolic 106–145; BP diastolic 56–72
[2017-11-22 05:35] LABS: INTER. NORMALIZED RATIO 1.4
[2017-11-22 05:44] LABS: BASOPHIL (%) 0.1 % (0-1); EOSINOPHIL (%) 3.2 % (0-5); EOSINOPHIL COUNT 0.2 K/uL (0-0.3); HEMATOCRIT 26.3 % (38.0-50.0); HEMOGLOBIN 7.9 G/DL (12.5-16.6); IMMATURE GRANULOCYTE (%) 0.4 % (0.0-0.7); LYMPHOCYTE COUNT 0.2 K/uL (1.0-2.8); MCH 26.6 PG (29.0-34.0); MCV 88.6 FL (86-99); MONOCYTE (%) 8.4 % (3-12); MONOCYTE COUNT 0.6 K/uL (0-0.8); NEUTROPHIL (%) 84.9 % (45-76); NEUTROPHIL COUNT 6.3 K/uL (1.8-6.4); RBC DIS.WIDTH-SD 51.4 % (39-53); RED BLOOD COUNT 2.97 M/uL (4.00-5.50); WHITE BLOOD COUNT 7.4 K/uL (4.1-10.2)
[2017-11-22 05:54] LABS: ALBUMIN 3.1 G/DL (3.2-4.8); ALKALINE PHOSPHATASE 41 IU/L (3-129); ALT (GPT) 16 IU/L (3-49); AST (GOT) 18 IU/L (2-34); CHLORIDE 101 MEQ/L (99-109); CREATINE KINASE 206 IU/L (1-294); CREATININE 1.7 MG/DL (0.6-1.3); GFR ESTIMATE (CALCULATED) 41 mL/min/ (58.99-99999); GLUCOSE 157 mg/dL (70-99); MAGNESIUM 2.1 mg/dl (1.3-2.7); POTASSIUM 3.9 MEQ/L (3.7-5.4); SODIUM 141 MEQ/L (136-147); TOTAL BILIRUBIN 0.4 MG/DL (0.0-1.0); TOTAL PROTEIN 5.3 G/DL (6.4-8.3); UREA NITROGEN (BUN) 54 mg/dL (9-23)
[2017-11-22 06:10] LABS: URIC ACID 7.1 mg/dL (3.1-9.2)
[2017-11-22 06:21] LABS: PLAT.SUFFICIENCY DECREASED
[2017-11-22 06:35] LABS: PLATELET COUNT 95 K/uL (156-360)
[2017-11-22 07:32] LABS: APPEARANCE CLEAR ((CLEAR)); BILIRUBIN NEGATIVE; BLOOD MODERATE; COLOR YELLOW ((YELLOW)); GLUCOSE (STRIP) NEGATIVE; KETONES NEGATIVE; LEUKOCYTES NEGATIVE; NITRITE NEGATIVE; PROTEIN (STRIP) 30; SPECIFIC GRAVITY 1.017 (1.000-1.030); UROBILINOGEN 0.2 MG/DL (0.2-1.0)
[2017-11-22 07:39] LABS: BACTERIA RARE /HPF; EPITHELIAL CELLS NONE SEEN /HPF; HYALINE CASTS 0-5 /LPF; MUCUS TRACE /LPF; RED BLOOD CELLS 0-5 /HPF (0-5); WHITE BLOOD CELLS 0-5 /HPF (0-5)
[2017-11-22 09:52] LABS: UR CREATININE CONCENTRATION 95.5 MG/DL
[2017-11-23] VITALS (13 sets, daily range): BP systolic 103–137; BP diastolic 55–71
[2017-11-23 04:21] LABS: BODY FLUID PH 8.1 (())
[2017-11-23 05:33] LABS: BASOPHIL (%) 0.1 % (0-1); EOSINOPHIL (%) 5.5 % (0-5); EOSINOPHIL COUNT 0.8 K/uL (0-0.3); HEMATOCRIT 29.4 % (38.0-50.0); HEMOGLOBIN 8.7 G/DL (12.5-16.6); IMMATURE GRANULOCYTE (%) 0.5 % (0.0-0.7); LYMPHOCYTE (%) 1.5 % (15-42); LYMPHOCYTE COUNT 0.2 K/uL (1.0-2.8); MCH 26.1 PG (29.0-34.0); MCHC 29.6 G/DL (30.0-36.0); MCV 88.3 FL (86-99); MONOCYTE (%) 3.1 % (3-12); MONOCYTE COUNT 0.5 K/uL (0-0.8); NEUTROPHIL (%) 89.3 % (45-76); NEUTROPHIL COUNT 12.9 K/uL (1.8-6.4); PLATELET COUNT 101 K/uL (156-360); RBC DIS.WIDTH-CV 16.1 % (11.8-14.6); RBC DIS.WIDTH-SD 52.2 % (39-53); RED BLOOD COUNT 3.33 M/uL (4.00-5.50); WHITE BLOOD COUNT 14.4 K/uL (4.1-10.2)
[2017-11-23 05:35] LABS: INTER. NORMALIZED RATIO 1.4
[2017-11-23 05:58] LABS: CHLORIDE 101 MEQ/L (99-109); CREATININE 1.5 MG/DL (0.6-1.3); GFR ESTIMATE (CALCULATED) 47 mL/min/ (58.99-99999); GLUCOSE 126 mg/dL (70-99); POTASSIUM 3.9 MEQ/L (3.7-5.4); SODIUM 140 MEQ/L (136-147); UREA NITROGEN (BUN) 50 mg/dL (9-23)
[2017-11-24 04:00] VITALS: BP 136/76
[2017-11-24 05:06] LABS: BASOPHIL (%) 0.1 % (0-1); EOSINOPHIL (%) 4.3 % (0-5); EOSINOPHIL COUNT 1.3 K/uL (0-0.3); HEMATOCRIT 32.2 % (38.0-50.0); HEMOGLOBIN 9.7 G/DL (12.5-16.6); IMMATURE GRANULOCYTE (%) 1.8 % (0.0-0.7); LYMPHOCYTE (%) 0.8 % (15-42); LYMPHOCYTE COUNT 0.2 K/uL (1.0-2.8); MCH 26.5 PG (29.0-34.0); MCHC 30.1 G/DL (30.0-36.0); MONOCYTE (%) 1.8 % (3-12); MONOCYTE COUNT 0.5 K/uL (0-0.8); NEUTROPHIL (%) 91.2 % (45-76); NEUTROPHIL COUNT 26.9 K/uL (1.8-6.4); RBC DIS.WIDTH-CV 16.2 % (11.8-14.6); RBC DIS.WIDTH-SD 52.3 % (39-53); RED BLOOD COUNT 3.66 M/uL (4.00-5.50); WHITE BLOOD COUNT 29.5 K/uL (4.1-10.2)
[2017-11-24 05:58] LABS: PLATELET COUNT 138 K/uL (156-360)
[2017-11-24 05:59] LABS: CHLORIDE 97 MEQ/L (99-109); CREATININE 1.5 MG/DL (0.6-1.3); GFR ESTIMATE (CALCULATED) 47 mL/min/ (58.99-99999); GLUCOSE 185 mg/dL (70-99); POTASSIUM 4.2 MEQ/L (3.7-5.4); SODIUM 139 MEQ/L (136-147); UREA NITROGEN (BUN) 46 mg/dL (9-23)
[2017-11-24 09:16] VITALS: BP 133/56
[2017-11-24 10:34] LABS: INTER. NORMALIZED RATIO 1.6
[2017-11-24 12:23] VITALS: BP 140/83
[2017-11-24 15:22] VITALS: BP 127/73
[2017-11-24 18:47] VITALS: BP 134/62
[2017-11-25 00:35] VITALS: BP 142/68
[2017-11-25 04:38] VITALS: BP 142/76
[2017-11-25 05:10] LABS: INTER. NORMALIZED RATIO 1.8
[2017-11-25 05:16] LABS: BASOPHIL (%) 0 % (0-1); EOSINOPHIL (%) 6.4 % (0-5); EOSINOPHIL COUNT 1.3 K/uL (0-0.3); HEMATOCRIT 30.6 % (38.0-50.0); HEMOGLOBIN 9.3 G/DL (12.5-16.6); IMMATURE GRANULOCYTE (%) 1.2 % (0.0-0.7); LYMPHOCYTE COUNT 0.4 K/uL (1.0-2.8); MCH 26.5 PG (29.0-34.0); MCHC 30.4 G/DL (30.0-36.0); MCV 87.2 FL (86-99); MONOCYTE (%) 2.2 % (3-12); MONOCYTE COUNT 0.5 K/uL (0-0.8); NEUTROPHIL (%) 88.2 % (45-76); NEUTROPHIL COUNT 18.1 K/uL (1.8-6.4); PLATELET COUNT 138 K/uL (156-360); RBC DIS.WIDTH-CV 16.3 % (11.8-14.6); RBC DIS.WIDTH-SD 50.7 % (39-53); RED BLOOD COUNT 3.51 M/uL (4.00-5.50); WHITE BLOOD COUNT 20.5 K/uL (4.1-10.2)
[2017-11-25 05:39] LABS: CHLORIDE 99 MEQ/L (99-109); CREATININE 1.3 MG/DL (0.6-1.3); GFR ESTIMATE (CALCULATED) 56 mL/min/ (58.99-99999); GLUCOSE 123 mg/dL (70-99); POTASSIUM 3.9 MEQ/L (3.7-5.4); SODIUM 138 MEQ/L (136-147); UREA NITROGEN (BUN) 39 mg/dL (9-23)
[2017-11-25 09:34] VITALS: BP 103/51
[2017-11-25 11:45] VITALS: BP 116/62
[2017-11-25 15:13] VITALS: BP 110/60
[2017-11-25 20:18] VITALS: BP 129/69
[2017-11-26 00:52] VITALS: BP 124/69
[2017-11-26 04:45] VITALS: BP 121/66
[2017-11-26 05:34] LABS: INTER. NORMALIZED RATIO 2.1
[2017-11-26 05:53] LABS: BASOPHIL (%) 0.1 % (0-1); CHLORIDE 95 MEQ/L (99-109); CREATININE 1.7 MG/DL (0.6-1.3); EOSINOPHIL COUNT 0.5 K/uL (0-0.3); GFR ESTIMATE (CALCULATED) 41 mL/min/ (58.99-99999); HEMATOCRIT 29.2 % (38.0-50.0); HEMOGLOBIN 9.1 G/DL (12.5-16.6); IMMATURE GRANULOCYTE (%) 0.8 % (0.0-0.7); LYMPHOCYTE (%) 2.1 % (15-42); LYMPHOCYTE COUNT 0.4 K/uL (1.0-2.8); MCH 26.8 PG (29.0-34.0); MCHC 31.2 G/DL (30.0-36.0); MCV 85.9 FL (86-99); MONOCYTE (%) 3.6 % (3-12); MONOCYTE COUNT 0.6 K/uL (0-0.8); NEUTROPHIL (%) 90.4 % (45-76); NEUTROPHIL COUNT 15.8 K/uL (1.8-6.4); POTASSIUM 4.3 MEQ/L (3.7-5.4); RBC DIS.WIDTH-CV 16.6 % (11.8-14.6); SODIUM 134 MEQ/L (136-147); UREA NITROGEN (BUN) 47 mg/dL (9-23); WHITE BLOOD COUNT 17.5 K/uL (4.1-10.2)
[2017-11-26 05:54] LABS: GLUCOSE 239 mg/dL (70-99)
[2017-11-26 06:29] LABS: ANISOCYTOSIS 1+; BURR CELLS 2+; OVALOCYTES 2+; PLAT.SUFFICIENCY DECREASED; PLATELET COUNT 136 K/uL (156-360); POIKILOCYTOSIS 2+
[2017-11-26 09:12] VITALS: BP 133/67
[2017-11-26 13:04] VITALS: BP 118/66
[2017-11-26 16:46] VITALS: BP 113/61
[2017-11-26 19:57] VITALS: BP 111/62
[2017-11-27] VITALS (7 sets, daily range): BP systolic 93–149; BP diastolic 53–71
[2017-11-27 05:01] LABS: BASOPHIL (%) 0.2 % (0-1); EOSINOPHIL (%) 6.6 % (0-5); HEMATOCRIT 29.2 % (38.0-50.0); HEMOGLOBIN 8.9 G/DL (12.5-16.6); IMMATURE GRANULOCYTE (%) 0.8 % (0.0-0.7); LYMPHOCYTE (%) 3.3 % (15-42); LYMPHOCYTE COUNT 0.5 K/uL (1.0-2.8); MCHC 30.5 G/DL (30.0-36.0); MCV 85.4 FL (86-99); MONOCYTE (%) 5.3 % (3-12); MONOCYTE COUNT 0.8 K/uL (0-0.8); NEUTROPHIL (%) 83.8 % (45-76); NEUTROPHIL COUNT 12.4 K/uL (1.8-6.4); PLATELET COUNT 149 K/uL (156-360); RBC DIS.WIDTH-CV 16.7 % (11.8-14.6); RBC DIS.WIDTH-SD 51.3 % (39-53); RED BLOOD COUNT 3.42 M/uL (4.00-5.50); WHITE BLOOD COUNT 14.8 K/uL (4.1-10.2)
[2017-11-27 05:15] LABS: INTER. NORMALIZED RATIO 2.5
[2017-11-27 05:25] LABS: CHLORIDE 97 MEQ/L (99-109); CREATININE 1.7 MG/DL (0.6-1.3); GFR ESTIMATE (CALCULATED) 41 mL/min/ (58.99-99999); GLUCOSE 138 mg/dL (70-99); POTASSIUM 4.3 MEQ/L (3.7-5.4); SODIUM 134 MEQ/L (136-147); UREA NITROGEN (BUN) 52 mg/dL (9-23)
[2017-11-28 03:56] VITALS: BP 145/82
[2017-11-28 05:24] LABS: BASOPHIL (%) 0.2 % (0-1); EOSINOPHIL COUNT 1.2 K/uL (0-0.3); HEMATOCRIT 30.7 % (38.0-50.0); HEMOGLOBIN 9.4 G/DL (12.5-16.6); IMMATURE GRANULOCYTE (%) 0.8 % (0.0-0.7); LYMPHOCYTE (%) 5.8 % (15-42); MCH 26.3 PG (29.0-34.0); MCHC 30.6 G/DL (30.0-36.0); MCV 85.8 FL (86-99); MONOCYTE COUNT 1.2 K/uL (0-0.8); NEUTROPHIL (%) 79.2 % (45-76); NEUTROPHIL COUNT 13.7 K/uL (1.8-6.4); PLATELET COUNT 166 K/uL (156-360); RED BLOOD COUNT 3.58 M/uL (4.00-5.50); WHITE BLOOD COUNT 17.3 K/uL (4.1-10.2)
[2017-11-28 05:29] LABS: INTER. NORMALIZED RATIO 3.1
[2017-11-28 05:50] LABS: CHLORIDE 98 MEQ/L (99-109); CREATININE 1.5 MG/DL (0.6-1.3); GFR ESTIMATE (CALCULATED) 47 mL/min/ (58.99-99999); GLUCOSE 108 mg/dL (70-99); POTASSIUM 4.8 MEQ/L (3.7-5.4); SODIUM 140 MEQ/L (136-147); UREA NITROGEN (BUN) 45 mg/dL (9-23)
[2017-11-28 07:43] VITALS: BP 128/58
[2017-11-28 13:39] VITALS: BP 133/60
[2017-11-28 16:00] VITALS: BP 125/68
[2017-11-28 22:00] VITALS: BP 135/83
[2017-11-29] VITALS: BP 111/65
[2017-11-29 05:34] LABS: INTER. NORMALIZED RATIO 3.6
[2017-11-29 05:35] LABS: BASOPHIL (%) 0.2 % (0-1); EOSINOPHIL (%) 8.6 % (0-5); EOSINOPHIL COUNT 1.3 K/uL (0-0.3); HEMATOCRIT 28.8 % (38.0-50.0); HEMOGLOBIN 8.7 G/DL (12.5-16.6); IMMATURE GRANULOCYTE (%) 0.9 % (0.0-0.7); LYMPHOCYTE (%) 4.7 % (15-42); LYMPHOCYTE COUNT 0.7 K/uL (1.0-2.8); MCH 26.2 PG (29.0-34.0); MCHC 30.2 G/DL (30.0-36.0); MCV 86.7 FL (86-99); MONOCYTE COUNT 1.2 K/uL (0-0.8); NEUTROPHIL (%) 77.6 % (45-76); NEUTROPHIL COUNT 11.5 K/uL (1.8-6.4); PLATELET COUNT 160 K/uL (156-360); RBC DIS.WIDTH-CV 17.2 % (11.8-14.6); RBC DIS.WIDTH-SD 52.5 % (39-53); RED BLOOD COUNT 3.32 M/uL (4.00-5.50); WHITE BLOOD COUNT 14.8 K/uL (4.1-10.2)
[2017-11-29 05:57] LABS: CHLORIDE 100 MEQ/L (99-109); CREATININE 1.3 MG/DL (0.6-1.3); GFR ESTIMATE (CALCULATED) 56 mL/min/ (58.99-99999); GLUCOSE 133 mg/dL (70-99); POTASSIUM 4.3 MEQ/L (3.7-5.4); SODIUM 139 MEQ/L (136-147); UREA NITROGEN (BUN) 40 mg/dL (9-23)
[2017-11-29 06:43] VITALS: BP 139/59
[2017-11-29 07:20] VITALS: BP 133/63
[2017-11-29 11:50] VITALS: BP 125/84
[2017-11-29 16:10] VITALS: BP 136/65
[2017-11-29 20:12] VITALS: BP 111/55
[2017-11-30] VITALS: BP 125/65
[2017-11-30 06:01] VITALS: BP 131/57
[2017-11-30 06:23] LABS: HEMATOCRIT 28.3 % (38.0-50.0); HEMOGLOBIN 8.7 G/DL (12.5-16.6); MCH 26.5 PG (29.0-34.0); MCHC 30.7 G/DL (30.0-36.0); MCV 86.3 FL (86-99); PLATELET COUNT 161 K/uL (156-360); RBC DIS.WIDTH-CV 17.4 % (11.8-14.6); RBC DIS.WIDTH-SD 52.4 % (39-53); RED BLOOD COUNT 3.28 M/uL (4.00-5.50); WHITE BLOOD COUNT 10.9 K/uL (4.1-10.2)
[2017-11-30 06:35] LABS: INTER. NORMALIZED RATIO 3.9
[2017-11-30 06:50] LABS: CHLORIDE 102 MEQ/L (99-109); CREATININE 1.2 MG/DL (0.6-1.3); GFR ESTIMATE (CALCULATED) > 59 mL/min/ (58.99-99999); GLUCOSE 133 mg/dL (70-99); POTASSIUM 4.6 MEQ/L (3.7-5.4); SODIUM 141 MEQ/L (136-147); UREA NITROGEN (BUN) 36 mg/dL (9-23)
[2017-11-30 11:55] VITALS: BP 128/65
[2017-11-30 16:24] VITALS: BP 142/69
[2017-11-30 20:33] VITALS: BP 123/71
[2017-12-01] VITALS (7 sets, daily range): BP systolic 107–170; BP diastolic 52–86
[2017-12-01 07:33] LABS: HEMATOCRIT 31.3 % (38.0-50.0); HEMOGLOBIN 9.5 G/DL (12.5-16.6); MCH 26.5 PG (29.0-34.0); MCHC 30.4 G/DL (30.0-36.0); MCV 87.2 FL (86-99); PLATELET COUNT 174 K/uL (156-360); RBC DIS.WIDTH-SD 53.5 % (39-53); RED BLOOD COUNT 3.59 M/uL (4.00-5.50); WHITE BLOOD COUNT 13.4 K/uL (4.1-10.2)
[2017-12-01 07:52] LABS: INTER. NORMALIZED RATIO 3.1
[2017-12-01 07:56] LABS: CHLORIDE 101 MEQ/L (99-109); CREATININE 1.3 MG/DL (0.6-1.3); GFR ESTIMATE (CALCULATED) 56 mL/min/ (58.99-99999); GLUCOSE 181 mg/dL (70-99); IRON 14 MCG/DL (35-150); MAGNESIUM 1.8 mg/dl (1.3-2.7); POTASSIUM 4.4 MEQ/L (3.7-5.4); SODIUM 143 MEQ/L (136-147); UREA NITROGEN (BUN) 32 mg/dL (9-23)
[2017-12-01 08:56] LABS: FERRITIN 103 NG/ML (22-322)
[2017-12-01 09:00] LABS: FOLIC ACID (FOLATE) 12.1 NG/ML (5.0-22.0)
[2017-12-02 00:34] VITALS: BP 120/75
[2017-12-02 04:15] VITALS: BP 136/76
[2017-12-02 05:38] LABS: HEMATOCRIT 30.4 % (38.0-50.0); HEMOGLOBIN 9.2 G/DL (12.5-16.6); MCHC 30.3 G/DL (30.0-36.0); MCV 85.9 FL (86-99); PLATELET COUNT 166 K/uL (156-360); RBC DIS.WIDTH-CV 17.8 % (11.8-14.6); RED BLOOD COUNT 3.54 M/uL (4.00-5.50); WHITE BLOOD COUNT 12.1 K/uL (4.1-10.2)
[2017-12-02 05:55] LABS: CHLORIDE 100 MEQ/L (99-109); CREATININE 1.4 MG/DL (0.6-1.3); GFR ESTIMATE (CALCULATED) 51 mL/min/ (58.99-99999); GLUCOSE 171 mg/dL (70-99); MAGNESIUM 1.8 mg/dl (1.3-2.7); POTASSIUM 4.4 MEQ/L (3.7-5.4); SODIUM 141 MEQ/L (136-147); UREA NITROGEN (BUN) 32 mg/dL (9-23)
[2017-12-02 05:57] LABS: INTER. NORMALIZED RATIO 2.8
[2017-12-02 07:00] VITALS: BP 149/64
[2017-12-02 12:00] VITALS: BP 115/73
[2017-12-02] MEDS ORDERED: CEFTRIAXONE2 G1 IV (12:59)
[2017-12-02] MEDS ORDERED: FLAGYL500 MG PO (13:00)
[2017-12-02] MEDS ORDERED: SPIRIVA RESPIMAT4 GM IH (13:01)
[2017-12-02] MEDS ORDERED: FERROUS SULFAT325 MG PO (13:02)
[2017-12-02] MEDS ORDERED: ASPIR-LOW81 MG PO (13:02)
[2017-12-02] MEDS ORDERED: DULERA 100 MCG/13 GM IH (13:03)
[2017-12-02 16:28] VITALS: BP 143/60
[2017-12-04 10:19] LABS: Flow Clinical Information NOT PROVIDED (()); Flow Number of Markers 22 (()); Flow Spec Viability 96 % (()); Flow Specimen Type PERIPHERAL BLOOD (())
== END 2017-12-02 18:12 | DRG 270 ==
LOC: EME 10:43 → 4WEST 13:10 → EDOF 13:10 → 4EAST 13:10 → ENRESERV 13:58 → 5EAST 15:55 → ENRESERV 17:08 → 5EAST 17:08 → ENRESERV 17:20 → 4EAST 17:33 → ENRESERV 11-20 09:40 → 4EAST 11-20 17:54 → ENRESERV 11-20 22:50 → 4WEST 11-21 03:45 → ENRESERV 11-23 15:54 → 4EAST 11-23 19:18
PROVIDERS: Emergency Medicine; Internal Medicine; Internal Medicine Nephrology; Nurse Practitioner; Specialist; Student in an Organized Health Care Education/Training Program; Thoracic Surgery (Cardiothoracic Vascular Surgery)
PROC: 0W9D00Z Drainage of Pericardial Cavity with Drainage Device, Open Approach (ICD-10-PCS; principal; 2017-11-20)
PROC: 0HDMXZZ Extraction of Right Foot Skin, External Approach (ICD-10-PCS; 2017-12-01)
DX: I31.3 Pericardial effusion (noninflammatory) (principal); A41.9 Sepsis, unspecified organism; E11.69 Type 2 diabetes mellitus with other specified complication; M86.171 Other acute osteomyelitis, right ankle and foot; L89.613 Pressure ulcer of right heel, stage 3; N17.0 Acute kidney failure with tubular necrosis; E87.3 Alkalosis; T50.1X5A Adverse effect of loop [high-ceiling] diuretics, initial encounter; J18.9 Pneumonia, unspecified organism; J44.0 Chronic obstructive pulmonary disease with (acute) lower respiratory infection; I11.0 Hypertensive heart disease with heart failure; I50.43 Acute on chronic combined systolic (congestive) and diastolic (congestive) heart failure; E11.51 Type 2 diabetes mellitus with diabetic peripheral angiopathy without gangrene; E86.9 Volume depletion, unspecified; I95.9 Hypotension, unspecified; I27.20 Pulmonary hypertension, unspecified; I42.9 Cardiomyopathy, unspecified; J44.1 Chronic obstructive pulmonary disease with (acute) exacerbation; F03.90 Unspecified dementia, unspecified severity, without behavioral disturbance, psychotic disturbance, mood disturbance, and anxiety; F05 Delirium due to known physiological condition; I69.398 Other sequelae of cerebral infarction; R20.9 Unspecified disturbances of skin sensation; L27.1 Localized skin eruption due to drugs and medicaments taken internally; T36.0X5A Adverse effect of penicillins, initial encounter; I48.2 Chronic atrial fibrillation; I25.10 Atherosclerotic heart disease of native coronary artery without angina pectoris; D50.9 Iron deficiency anemia, unspecified; E78.5 Hyperlipidemia, unspecified; I87.8 Other specified disorders of veins; H91.90 Unspecified hearing loss, unspecified ear; I87.2 Venous insufficiency (chronic) (peripheral); E66.9 Obesity, unspecified; Z68.33 Body mass index [BMI] 33.0-33.9, adult; Z79.01 Long term (current) use of anticoagulants; Z79.82 Long term (current) use of aspirin; Z79.84 Long term (current) use of oral hypoglycemic drugs; Z95.5 Presence of coronary angioplasty implant and graft
CPT/HCPCS: 71045; 71046; 71250; 73630; 73718; 76770; 76937; 80048; 80053; 80076; 81003; 82550; 82570; 82607; 82728; 82746; 82945; 82948; 83540; 83605; 83615 91; 83735; 83880; 83883 90; 83986 90; 84100; 84134; 84156; 84157; 84300; 84315; 84484; 84550; 85025; 85027; 85610; 85651; 85730; 86140; 86334; 86850; 86870; 86900; 86901; 86920; 87040; 87070; 87075; 87086; 87102; 87116; 87205; 87206; 87641; 88108; 88305; 89051; 93005; 93306; 93308; 93321; 94640 76; 94760; 94799; 97530 GO; 97530 GP; 97597; 97598; 99202; 99281; 99284; A6214; A6260; J0295; J0690; J0696; J1100; J1170; J1200; J1644; J1815; J1940; J2405; J2930; J3010; J7030; J7050; J7120; J7512; P9047; Q0177